=== PATIENT | female | born 1980 | race African-American/Black ===

== ENCOUNTER 2017-05-28 22:33 | Emergency (ER) | payer SELFPAY ==
[~2017-05-28] VITALS: Ht 170.2 cm; Wt 80.9 kg
[2017-05-28 22:39] VITALS: BP 138/75
--- NOTE | 2017-05-28 22:45 | NUR ---
pt wheechair assited to bed 4
--- NOTE | 2017-05-28 22:48 | NUR ---
Dr. Morales evaluating patient.
[2017-05-28] MEDS ORDERED: NACL 0.9% 500 ML IV ONE (22:50)
[2017-05-28] MEDS ORDERED: diphenhydrAMINE 50 MG/ML VIAL IVP ONE (22:50)
[2017-05-28] MEDS ORDERED: SUMAtriptan 6 MG/0.5 ML VIAL SUBQ ONE (22:50)
[2017-05-28] MEDS ORDERED: ONDANSETRON 4 MG/2 ML VIAL IVP ONE (22:50)
[2017-05-28] MEDS ORDERED: KETOROLAC 30 MG/ML VIAL IVP ONE (22:50)
--- NOTE | 2017-05-28 23:15 | NUR ---
36Y/F PT. PRESESNT TO ED WITH C/O MIGRAINE HEADACHE SINCE 1599. HX. MIGRAINE, LUPUS. AAO X4, W/C ASSISTED. GCS 15. RESPIRATIONS, EVEN AND UNLABORED. C/O HEADACHE 11/30, VSS, ER MADE AWARE OF PT. STATUS.
--- NOTE | 2017-05-29 00:20 | NUR ---
Patient discharged with v/s stable. Written and verbal after care instructions given and explained. Patient alert, oriented and verbalized understanding of instructions. Ambulatory with steady gait. All questions addressed prior to discharge. ID band removed. Patient advised to follow up with PMD. Rx of MOTRIN 800 MG, IMITREX 25 MG, ZOFRAN 4 MG given. Patient educated on indication of medication including possible reaction and side effects. Opportunity to ask questions provided and answered.
[2017-05-29 00:35] VITALS: BP 102/64
== END 2017-05-29 00:20 | disposition home or self-care (01) ==
LOC: MED 22:33
DX: G43.909 Migraine, unspecified, not intractable, without status migrainosus (principal); R03.0 Elevated blood-pressure reading, without diagnosis of hypertension; Z88.5 Allergy status to narcotic agent
CPT/HCPCS: 96361; 96372; 96374; 96375; 99284; J1200; J1885; J2405; J3030; J7030